=== PATIENT | male | born 1995 | race American Indian/Alaskan Native ===

== ENCOUNTER 2018-02-10 23:27 | Emergency (ER) | payer BC ==
--- NOTE | 2018-02-11 03:49 | Emergency Department Report ---
ED ENT HPI - General Chief complaint: Sore Throat Stated complaint: SORE THROAT,COUGH,VOMITING Time Seen by Provider: 02/11/18 03:47 Source: patient Mode of arrival: Ambulatory Limitations: No Limitations - History of Present Illness Initial comments: 22-year-old male past medical history none presents with complaint of sore throat nasal congestion and cough that has been ongoing for approximately 2 weeks. Patient is awake alert and oriented 3. States the sore throat got worse last night which is why he came to the ED. Patient is fully lucid. States he has had somewhat of a hoarse voice. Denies body aches. No direct sick contacts as per patient. Denies chest pain or palpitations. Does state he has nasal congestion as well MD complaint: sore throat Onset/Timin -: week(s) Severity: moderate - Related Data Previous Rx's Medication Instructions Recorded Last Taken Type Albuterol Sulfate [Ventolin Hfa] 18 gm IH Q4H PRN #1 hfa.aer.ad 02/11/18 Unknown Rx Azithromycin [Zithromax Z-ROSALINA] 250 mg PO QDAY #1 pack 02/11/18 Unknown Rx Dextromethorphan/Benzocaine 1 each PO Q4H PRN #1 pack 02/11/18 Unknown Rx [Cepacol Sorethroat-Cough Trevor] Loratadine [Claritin] 10 mg PO DAILY #14 tablet 02/11/18 Unknown Rx Ondansetron [Zofran Odt] 4 mg PO Q8H PRN #9 tab.rapdis 02/11/18 Unknown Rx Phenylephrine/Dm/Acetaminop/GG 10 ml PO Q4H PRN #1 liquid 02/11/18 Unknown Rx [Mucinex Lsat-Szo-Udhipsuijv Lq] Allergies Allergy/AdvReac Type Severity Reaction Status Date / Time No Known Allergies Allergy Unverified 02/10/18 23:59 ED Dental HPI - General Chief complaint: Sore Throat Stated complaint: SORE THROAT,COUGH,VOMITING Time Seen by Provider: 02/11/18 03:47 Source: patient Mode of arrival: Ambulatory Limitations: No Limitations - Related Data Previous Rx's Medication Instructions Recorded Last Taken Type Albuterol Sulfate [Ventolin Hfa] 18 gm IH Q4H PRN #1 hfa.aer.ad 02/11/18 Unknown Rx Azithromycin [Zithromax Z-ROSALINA] 250 mg PO QDAY #1 pack 02/11/18 Unknown Rx Dextromethorphan/Benzocaine 1 each PO Q4H PRN #1 pack 02/11/18 Unknown Rx [Cepacol Sorethroat-Cough Trevor] Loratadine [Claritin] 10 mg PO DAILY #14 tablet 02/11/18 Unknown Rx Ondansetron [Zofran Odt] 4 mg PO Q8H PRN #9 tab.rapdis 02/11/18 Unknown Rx Phenylephrine/Dm/Acetaminop/GG 10 ml PO Q4H PRN #1 liquid 02/11/18 Unknown Rx [Mucinex Gpyu-Zgt-Nolcgbfaje Lq] Allergies Allergy/AdvReac Type Severity Reaction Status Date / Time No Known Allergies Allergy Unverified 02/10/18 23:59 ED Review of Systems ROS: Stated complaint: SORE THROAT,COUGH,VOMITING Other details as noted in HPI Constitutional: denies: chills, fever Eyes: denies: eye pain, eye discharge, vision change ENT: throat pain, congestion. denies: ear pain Respiratory: cough. denies: shortness of breath, wheezing Cardiovascular: denies: chest pain, palpitations Endocrine: no symptoms reported Gastrointestinal: denies: abdominal pain, nausea, diarrhea Genitourinary: denies: urgency, dysuria Musculoskeletal: denies: back pain, joint swelling, arthralgia Skin: denies: rash, lesions Neurological: denies: headache, weakness, paresthesias Psychiatric: denies: anxiety, depression Hematological/Lymphatic: denies: easy bleeding, easy bruising ED Past Medical Hx - Past Medical History Previous Medical History?: No - Surgical History Past Surgical History?: No - Social History Smoking Status: Never Smoker Substance Use Type: None - Medications Home Medications: Home Medications Medication Instructions Recorded Confirmed Last Taken Type Albuterol Sulfate [Ventolin Hfa] 18 gm IH Q4H PRN #1 hfa.aer.ad 02/11/18 Unknown Rx Azithromycin [Zithromax Z-ROSALINA] 250 mg PO QDAY #1 pack 02/11/18 Unknown Rx Dextromethorphan/Benzocaine 1 each PO Q4H PRN #1 pack 02/11/18 Unknown Rx [Cepacol Sorethroat-Cough Trevor] Loratadine [Claritin] 10 mg PO DAILY #14 tablet 02/11/18 Unknown Rx Ondansetron [Zofran Odt] 4 mg PO Q8H PRN #9 tab.rapdis 02/11/18 Unknown Rx Phenylephrine/Dm/Acetaminop/GG 10 ml PO Q4H PRN #1 liquid 02/11/18 Unknown Rx [Mucinex Edso-Wtc-Ypedpfuggr Lq] ED Physical Exam - General Limitations: No Limitations General appearance: alert, in no apparent distress - Head Head exam: Present: atraumatic, normocephalic - Eye Eye exam: Present: normal appearance, PERRL, EOMI - ENT ENT exam: Present: mucous membranes moist - Expanded ENT Exam Expanded Mouth exam: Present: normal external inspection Throat exam: Positive: tonsillar erythema (slight tonsillar erythema but no exudates uvula is midline. 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 Absent: respiratory distress - Cardiovascular Cardiovascular Exam: Present: regular rate, normal rhythm. Absent: systolic murmur, diastolic murmur, rubs, gallop - GI/Abdominal GI/Abdominal exam: Present: soft (abdomen is soft nontender nondistended), normal bowel sounds - Rectal Rectal exam: Present: deferred - Extremities Exam Extremities exam: Present: normal inspection - Back Exam Back exam: Present: normal inspection - Neurological Exam Neurological exam: Present: alert, oriented X3 - Psychiatric Psychiatric exam: Present: normal affect, normal mood - Skin Skin exam: Present: warm, dry, intact, normal color. Absent: rash ED Course Vital Signs 02/10/18 02/10/18 23:30 23:56 Temperature 98.2 F 98.2 F Pulse Rate 73 80 Respiratory 18 17 Rate Blood Pressure 115/65 115/65 O2 Sat by Pulse 95 98 Oximetry ED Medical Decision Making - Medical Decision Making A/P: Acute bronchitis, laryngitis 1-chest x-ray shows no pneumonia 2-Tessalon Perles, loratadine, azithromycin, albuterol inhaler, throat lozenges , Mucinex, zofran 3-follow-up with primary care doctor 4- vital signs stable before discharge Critical care attestation.: If time is entered above; I have spent that time in minutes in the direct care of this critically ill patient, excluding procedure time. ED Disposition Clinical Impression: Acute bronchitis Qualifiers: Bronchitis organism: unspecified organism Qualified Code(s): J20.9 - Acute bronchitis, unspecified Disposition: DC-01 TO HOME OR SELFCARE Is pt being admited?: No Does the pt Need Aspirin: No Condition: Stable Instructions: Acute Bronchitis (ED), Laryngitis (ED), Cold Symptoms (ED) Prescriptions: Albuterol Sulfate [Ventolin Hfa] 18 gm IH Q4H PRN #1 hfa.aer.ad PRN Reason: Cough Azithromycin [Zithromax Z-ROSALINA] 250 mg PO QDAY #1 pack Dextromethorphan/Benzocaine [Cepacol Sorethroat-Cough Trevor] 1 each PO Q4H PRN #1 pack PRN Reason: Cough Loratadine [Claritin] 10 mg PO DAILY #14 tablet Ondansetron [Zofran Odt] 4 mg PO Q8H PRN #9 tab.rapdis PRN Reason: Nausea Phenylephrine/Dm/Acetaminop/GG [Mucinex Tiry-Cej-Xprpvwzxkb Lq] 10 ml PO Q4H PRN #1 liquid PRN Reason: Cough Referrals: [facility] [Provider Group] - 3-5 Days [facility] [Outside] - 3-5 Days Forms: Accompanied Note, Work/School Release Form(ED) Time of Disposition: 06:48
[2018-02-11] MEDS ORDERED: PEPCID PO ONE (05:28)
[2018-02-11] MEDS ORDERED: DECADRON IM ONE (05:28)
[2018-02-11] MEDS ORDERED: GUAIFENESIN DM SYRUP PO ONE (05:29)
--- NOTE | 2018-02-11 06:04 | XRay Report ---
FINAL REPORT PROCEDURE: XR CHEST ROUTINE 2V TECHNIQUE: PA and lateral chest radiographs were obtained. CPT 82822 HISTORY: productive cough, fever COMPARISON: No prior studies are available for comparison. FINDINGS: Heart: Normal. Mediastinum/Vessels: Normal. Lungs/Pleural space: Normal. Bony thorax: No acute osseous abnormality. Other: IMPRESSION: Normal examination.
[2018-02-11] MEDS ORDERED: DUONEB *Not for PRN Use IH ONE ×3 (06:29)
[2018-02-11 07:13] VITALS: BP 119/64
== END 2018-02-11 07:08 | disposition home or self-care (01) ==
LOC: ED 23:27
DX: J02.9 Acute pharyngitis, unspecified (principal)
CPT/HCPCS: 71046; 87116; 87430; 94640; 96372; 99284; J1100